=== PATIENT | female | born 2000 | race Two or more races ===

== ENCOUNTER 2025-05-19 00:01 | Inpatient (IN) ==
[2025-05-19] MEDS: ONDANSETRON INJ 2 MG/ML 2 ML VIAL ONE (00:14)
[2025-05-19] MEDS: ONDANSETRON INJ 2 MG/ML 2 ML VIAL IV STA (00:18)
[2025-05-19] MEDS: SODIUM CHLORIDE 0.9% 1,000 ML IV SCH (00:19)
[2025-05-19] MEDS: PANTOprazole 40 MG/10 ML SYR IV ONE (00:38)
[2025-05-19 00:39] LABS: Hematocrit (blood only) 42.5 % (37.0-47.0); Hemoglobin 14.1 g/dl (12.0-16.0); Immature Granulocytes # (auto) 0.05 K/uL (0.01-0.20); Immature Granulocytes % (auto) 0.4 %; Mean Corpuscular Hemoglobin 29.9 pg (25.0-34.0); Mean Corpuscular Volume 90.0 fL (80.0-100.0); Platelet Count 255 K/uL (130-400); RDW Standard Deviation 42.2 fL (36.4-46.3); Red Blood Count 4.72 M/uL (4.20-5.40); White Blood Count 12.12 K/ul (4.8-10.8)
[2025-05-19 00:47] LABS: Alanine Aminotransferase 27.0 U/L (7-52); Albumin Globulin Ratio 1.7 (0.9-2); Alkaline Phosphatase 86.0 U/L (34-104); Anion Gap 13.0 (3-11); Bilirubin,Total 0.2 mg/dl (0.2-1.0); Blood Urea Nitrogen 22.0 mg/dl (6-23); Calcium 9.4 mg/dl (8.6-10.3); Carbon Dioxide 20.0 mmol/L (21-32); Chloride 106.0 mmol/L (98-107); Creatinine Clr Calc Pharmacy 92.3 ml/min; Globulin 2.7 gm/dl (2.5-4.0); Glucose 183.0 mg/dl (70-99(Fasting)); Magnesium 2.2 mg/dl (1.7-2.4); Potassium 4.3 mmol/L (3.5-5.1); Sodium 139.0 mmol/L (136-145); Total Protein 7.3 gm/dl (6.0-8.3)
--- NOTE | 2025-05-19 00:47 | Emergency Department Note ---
Impression & Plan Intentional drug overdose, Advil overdose ED Provider Note NAME: MITALI WARNER AGE: 24 SEX: F : 2000 ARRIVES VIA: Walk-In INFORMANT: Patient, ED PROVIDER(S): Evaristo Garcia MD CHIEF COMPLAINT: Overdose, unresponsive HPI: This is a 24-year-old female presenting for overdose/unresponsiveness. Patient was reportedly brought in by fianc. They. Had an argument and the fianc left the house. He returned home and found her with [employer] bottle of Advil, 10 mg. He states entire bottle was empty. Patient had reportedly vomited multiple places across the house. She has been confused/unresponsive since he came home. He states there are no other medications in the house. Otherwise denies any alcohol or drugs in the house. ROS: See above HPI for pertinent positives & negatives. A total of 10 systems reviewed and were otherwise negative. PAST MEDICAL HISTORY: See Below PAST SURGICAL HISTORY: See Below FAMILY HISTORY: See Below SOCIAL HISTORY: See Below HOME MEDICATIONS: See Below ALLERGIES: See Below VITALS: See Below PHYSICAL EXAMINATION: General: Eyes closed, unresponsive moaning Head: Normocephalic and atraumatic Eyes: Normal inspection, extraocular muscles intact Ear, nose, throat: Normal external exam Neck: Normal range of motion Respiratory: lungs clear to auscultation bilaterally Cardiovascular: Regular rate/rhythm, no murmur GI: soft, nontender, no guarding or rebound Extremities: nontender, moves all extremities Neuro: Moves all extremities to pain, eyes closed Skin: Warm, dry, and intact MEDICAL DECISION MAKING: This is a 24-year-old female presenting for overdose/unresponsiveness. Patient reportedly had taken ibuprofen. Unclear if other drugs are on board. She withdraws to painful stimuli. Otherwise she makes moaning sounds. She is tachycardic, not hypoxic or hypotensive. No fevers. Not tachypneic. -After patient is let her rest, she does downtrend with heart rates in the 90s. Moaning ceases. - Bloodwork is reviewed showing no significant leukocytosis, anemia, electrolyte or creatinine abnormality. Negative alcohol, salicylates and Tylenol level -Patient given fluids, Zofran and Protonix -CT imaging of the head does not reveal obvious intracranial hemorrhage - Lactic acid minimally elevated at 3.6. VBG is mildly acidotic as well. - This time patient has improved vital signs but is still fairly lethargic. She maintains airway. Will admit for encephalopathy status post overdose. - Care discussed with Dr. Caicedo for admission Differential diagnosis: Alcohol intoxication, TCA overdose, sedative overdose, intracranial hemorrhage Independent History obtained from: [facility] interpreted by me: ECG: Cardiac Monitoring: An order was placed for continuous cardiac monitoring. The monitor shows a rate of 92 with sinus rhythm. Past Med/Surg History Problem List (Updated 05/19/25 @ 17:34 by Evaristo Garcia MD) Insomnia Advil overdose (Acute) Intentional drug overdose (Acute) Social History Smoking Status: Never smoker Hx Alcohol Use: No Hx Substance Use: No Preferred Language: Malay Communication Ability: Effective [employer] Required: No Beliefs That Will Affect Care: None Current Living Situation: Significant Other Feels Safe at Home: Yes Assistive Devices: None Allergies Allergies Allergy/AdvReac Type Severity Reaction Status Date / Time No Known Allergies Allergy Verified 05/19/25 02:14 Home Meds Home Medications Medication Instructions Recorded Confirmed No Known Home Medications 05/19/25 05/19/25 Results & Data (ED) Vital Signs Vital Signs - 24 hr 05/19/25 00:03 05/19/25 00:05 05/19/25 00:05 Temperature 37 C Temperature Source Rectal Pulse Rate 124 H Pulse Rate [Apical] 126 H Pulse Rate from SpO2 Sensor Pulse Rhythm [Apical] Regular Pulse Strength [Apical] Normal Respiratory Rate 12 Respiratory Effort / Characteristics Non-Labored Spontaneous Respiratory Depth Normal Respiratory Pattern Regular Blood Pressure Blood Pressure [Right Arm] 111/58 L Blood Pressure Mean Blood Pressure Mean [Right Arm] 75 Blood Pressure Position [Right Arm] Lying Pulse Oximetry 99 100 Oxygen Delivery Method Room Air Room Air Sepsis Recent Fever Within 48 Hours No Sepsis New/Unexplained Change in Mental Status N/A Sepsis Action Taken by Nursing No Action Required 05/19/25 00:15 05/19/25 00:30 05/19/25 00:50 Temperature Temperature Source Pulse Rate Pulse Rate [Apical] 100 H 126 H 96 H Pulse Rate from SpO2 Sensor Pulse Rhythm [Apical] Regular Regular Pulse Strength [Apical] Normal Normal Respiratory Rate 13 17 20 Respiratory Effort / Characteristics Grunting Grunting Respiratory Depth Normal Normal Respiratory Pattern Regular Regular Blood Pressure Blood Pressure [Right Arm] 93/75 L 95/75 L 99/56 L Blood Pressure Mean Blood Pressure Mean [Right Arm] 81 81 70 Blood Pressure Position [Right Arm] Lying Sitting Lying Pulse Oximetry 100 100 100 Oxygen Delivery Method Room Air Room Air Room Air Sepsis Recent Fever Within 48 Hours Sepsis New/Unexplained Change in Mental Status Sepsis Action Taken by Nursing 05/19/25 01:15 05/19/25 01:16 05/19/25 01:30 Temperature Temperature Source Pulse Rate Pulse Rate [Apical] 92 H Pulse Rate from SpO2 Sensor Pulse Rhythm [Apical] Regular Pulse Strength [Apical] Normal Respiratory Rate 17 Respiratory Effort / Characteristics Non-Labored Spontaneous Respiratory Depth Normal Respiratory Pattern Regular Blood Pressure 108/58 L 99/57 L Blood Pressure [Right Arm] 108/58 L Blood Pressure Mean 84 67 Blood Pressure Mean [Right Arm] 74 Blood Pressure Position [Right Arm] Sitting Pulse Oximetry 100 Oxygen Delivery Method Room Air Sepsis Recent Fever Within 48 Hours Sepsis New/Unexplained Change in Mental Status Sepsis Action Taken by Nursing 05/19/25 01:30 05/19/25 01:48 Temperature Temperature Source Pulse Rate 88 91 H Pulse Rate [Apical] Pulse Rate from SpO2 Sensor 90 92 H Pulse Rhythm [Apical] Pulse Strength [Apical] Respiratory Rate 20 20 Respiratory Effort / Characteristics Respiratory Depth Respiratory Pattern Blood Pressure Blood Pressure [Right Arm] Blood Pressure Mean Blood Pressure Mean [Right Arm] Blood Pressure Position [Right Arm] Pulse Oximetry 100 100 Oxygen Delivery Method Sepsis Recent Fever Within 48 Hours Sepsis New/Unexplained Change in Mental Status Sepsis Action Taken by Nursing Laboratory Data 05/19/25 11:07 05/19/25 11:07 Lab Results 05/19/25 05/19/25 05/19/25 Range/Units 00:07 00:12 00:34 WBC 12.12 H (4.8-10.8) K/ul RBC 4.72 (4.20-5.40) M/uL Hgb 14.1 (12.0-16.0) g/dl POC Hgb 14.3 (12.0-16.0) g/dl Hct 42.5 (37.0-47.0) % POC Hct 42 (37-47) % MCV 90.0 (80.0-100.0) fL MCH 29.9 (25.0-34.0) pg MCHC 33.2 (32.0-36.0) g/dL RDW Std Deviation 42.2 (36.4-46.3) fL RDW Coeff of Jennifer 12.9 (11.5-14.5) % Plt Count 255 (130-400) K/uL MPV 9.5 (9.4-12.4) fL Immature Gran % (Auto) 0.4 % Neut % (Auto) 72.8 % Lymph % (Auto) 19.2 % [place] % (Auto) 7.2 % Eos % (Auto) 0.2 % Baso % (Auto) 0.2 % Neut # (Auto) 8.82 H (1.40-6.50) K/uL Lymph # (Auto) 2.33 (1.20-3.40) K/uL [place] # (Auto) 0.87 H (0.11-0.59) K/uL Eos # (Auto) 0.02 (0.00-0.50) K/uL Baso # (Auto) 0.03 (0.00-0.20) K/uL Immature Gran # (Auto) 0.05 (0.01-0.20) K/uL POC pH 7.27 L (7.35-7.45) POC pCO2 46 (35-46) mmHg POC pO2 42 L (80-95) mmHg POC HCO3 21 (19-24) denise/L POC Total CO2 23 L (24-31) mmol/L POC Base Excess -6.0 (-9-1.8) denise/L POC ABG O2 Sat 71.0 L (90-95) % POC Sodium 139 (135-144) mmol/L Sodium 139 (136-145) mmol/L POC Potassium 4.1 (3.3-5.0) mmol/L Potassium 4.3 (3.5-5.1) mmol/L Chloride 106 (98-107) mmol/L Carbon Dioxide 20 L (21-32) mmol/L Anion Gap 13 H (3-11) BUN 22 (6-23) mg/dl Creatinine 0.88 (0.6-1.2) mg/dl Est Cr Clr Drug Dosing 92.3 ml/min eGFR 94.06 BUN/Creatinine Ratio 25.0 H (10-20) Glucose 183 H (70-99(Fasting)) mg/dl Estimat Average Glucose 103 mg/dl Hemoglobin A1c 5.2 (4.5-5.6) % Lactate (0.4-2.0) mmol/L Calcium 9.4 (8.6-10.3) mg/dl Magnesium 2.2 (1.7-2.4) mg/dl Total Bilirubin 0.2 (0.2-1.0) mg/dl AST 34 (13-39) U/L ALT 27 (7-52) U/L Alkaline Phosphatase 86 (34-104) U/L Total Protein 7.3 (6.0-8.3) gm/dl Albumin 4.6 (3.4-5.0) gm/dl Globulin 2.7 (2.5-4.0) gm/dl Albumin/Globulin Ratio 1.7 (0.9-2) Procalcitonin < 0.02 (0-0.5) ng/ml TSH 0.598 (0.300-4.500) uIu/ml Urine Color Yellow Urine Appearance Clear (Clear) Urine pH 6.0 (4.5-7.5) Ur Specific [place] 1.028 (1.000-1.030) Urine Protein 1+ H (Negative) Urine Glucose (UA) Negative (Negative) Urine Ketones 1+ H (Negative) Urine Blood 1+ H (Negative) Urine Nitrite Negative (Negative) Urine Bilirubin Negative (Negative) Urine Urobilinogen Negative (Negative) Ur Leukocyte Esterase Negative (Negative) Urine WBC (Auto) 0-5 (0-5) /hpf Urine RBC (Auto) 0-2 (0-2) /hpf U Hyaline Cast (Auto) 0-2 (0-2) /lpf U Epithel Cells (Auto) 0-2 (0-2) /hpf Urine Bacteria (Auto) 4+ H (None Seen) Urine Test Negative (Negative) Urine Comment Salicylates < 3.0 L (3.0-30) mg/dl Urine Opiates Screen Neg (Neg) Ur Methadone, Qual Neg (Neg) Urine Fentanyl Screen Neg (Neg) Acetaminophen < 3 L (10-30) ug/ml Urine Barbiturates Neg (Neg) Ur Phencyclidine (PCP) Neg (Neg) U Amphetamin/Meth Scrn Neg (Neg) MDMA (Ecstasy) Screen Neg (Neg) U Benzodiazepines Scrn Neg (Neg) Ur Cocaine Metabolite Neg (Neg) U Marijuana (THC) Screen Neg (Neg) Ethyl Alcohol mg/dL < 10.0 (<10.0) mg/dl 05/19/25 Range/Units 01:00 WBC (4.8-10.8) K/ul RBC (4.20-5.40) M/uL Hgb (12.0-16.0) g/dl POC Hgb (12.0-16.0) g/dl Hct (37.0-47.0) % POC Hct (37-47) % MCV (80.0-100.0) fL MCH (25.0-34.0) pg MCHC (32.0-36.0) g/dL RDW Std Deviation (36.4-46.3) fL RDW Coeff of Jennifer (11.5-14.5) % Plt Count (130-400) K/uL MPV (9.4-12.4) fL Immature Gran % (Auto) % Neut % (Auto) % Lymph % (Auto) % [place] % (Auto) % Eos % (Auto) % Baso % (Auto) % Neut # (Auto) (1.40-6.50) K/uL Lymph # (Auto) (1.20-3.40) K/uL [place] # (Auto) (0.11-0.59) K/uL Eos # (Auto) (0.00-0.50) K/uL Baso # (Auto) (0.00-0.20) K/uL Immature Gran # (Auto) (0.01-0.20) K/uL POC pH (7.35-7.45) POC pCO2 (35-46) mmHg POC pO2 (80-95) mmHg POC HCO3 (19-24) denise/L POC Total CO2 (24-31) mmol/L POC Base Excess (-9-1.8) denise/L POC ABG O2 Sat (90-95) % POC Sodium (135-144) mmol/L Sodium (136-145) mmol/L POC Potassium (3.3-5.0) mmol/L Potassium (3.5-5.1) mmol/L Chloride (98-107) mmol/L Carbon Dioxide (21-32) mmol/L Anion Gap (3-11) BUN (6-23) mg/dl Creatinine (0.6-1.2) mg/dl Est Cr Clr Drug Dosing ml/min eGFR BUN/Creatinine Ratio (10-20) Glucose (70-99(Fasting)) mg/dl Estimat Average Glucose mg/dl Hemoglobin A1c (4.5-5.6) % Lactate 3.6 H* (0.4-2.0) mmol/L Calcium (8.6-10.3) mg/dl Magnesium (1.7-2.4) mg/dl Total Bilirubin (0.2-1.0) mg/dl AST (13-39) U/L ALT (7-52) U/L Alkaline Phosphatase (34-104) U/L Total Protein (6.0-8.3) gm/dl Albumin (3.4-5.0) gm/dl Globulin (2.5-4.0) gm/dl Albumin/Globulin Ratio (0.9-2) Procalcitonin (0-0.5) ng/ml TSH (0.300-4.500) uIu/ml Urine Color Urine Appearance (Clear) Urine pH (4.5-7.5) Ur Specific [place] (1.000-1.030) Urine Protein (Negative) Urine Glucose (UA) (Negative) Urine Ketones (Negative) Urine Blood (Negative) Urine Nitrite (Negative) Urine Bilirubin (Negative) Urine Urobilinogen (Negative) Ur Leukocyte Esterase (Negative) Urine WBC (Auto) (0-5) /hpf Urine RBC (Auto) (0-2) /hpf U Hyaline Cast (Auto) (0-2) /lpf U Epithel Cells (Auto) (0-2) /hpf Urine Bacteria (Auto) (None Seen) Urine Test (Negative) Urine Comment Salicylates (3.0-30) mg/dl Urine Opiates Screen (Neg) Ur Methadone, Qual (Neg) Urine Fentanyl Screen (Neg) Acetaminophen (10-30) ug/ml Urine Barbiturates (Neg) Ur Phencyclidine (PCP) (Neg) U Amphetamin/Meth Scrn (Neg) MDMA (Ecstasy) Screen (Neg) U Benzodiazepines Scrn (Neg) Ur Cocaine Metabolite (Neg) U Marijuana (THC) Screen (Neg) Ethyl Alcohol mg/dL (<10.0) mg/dl Administered Medications Promethazine HCl (Phenergan) 6.25 mg in 50.25 mls @ 201 mls/hr IV Q6H PRN PRN Reason: Nausea And Vomiting Stop: 06/18/25 01:56 Last Infusion: 05/19/25 05:18 Dose: Infused Documented By: Admin: 05/19/25 04:54 Dose: 201 mls/hr Documented By: EZRA Discontinued Medications Sodium Chloride (Nss) 1,000 mls @ 999 mls/hr IV .Q1H1M SHANELLE Stop: 05/19/25 01:15 Last Infusion: 05/19/25 01:23 Dose: Infused Documented By: Admin: 05/19/25 00:19 Dose: 999 mls/hr Documented By: EZRA Pantoprazole Sodium (Protonix) 40 mg in 10 mls @ 5 mls/min IV NOW ONE Stop: 05/19/25 00:23 Last Admin: 05/19/25 00:38 Dose: 5 mls/min Documented By: EZRA Lactated Ringer's (Lr) 1,000 mls @ 500 mls/hr IV .Q2H STA Stop: 05/19/25 04:08 Last Infusion: 05/19/25 05:19 Dose: Infused Documented By: Admin: 05/19/25 02:13 Dose: 500 mls/hr Documented By: DANIELLE Lactated Ringer's (Lr) 1,000 mls @ 200 mls/hr IV .Q5H ONE Stop: 05/19/25 09:14 Last Infusion: 05/19/25 10:25 Dose: Infused Documented By: Admin: 05/19/25 04:48 Dose: 200 mls/hr Documented By: EZRA Lactated Ringer's (Lr) 1,000 mls @ 200 mls/hr IV .Q5H ONE Stop: 05/19/25 14:59 Last Infusion: 05/19/25 15:44 Dose: Infused Documented By: Admin: 05/19/25 10:25 Dose: 200 mls/hr Documented By: SHERRY Miscellaneous Information (Patient's Allergy Info Needs Entered) 1 each N/A ONE STA Stop: 05/19/25 02:11 Last Admin: 05/19/25 02:18 Dose: Not Given Documented By: DANIELLE Ondansetron HCl (Ondansetron Inj 2 Mg/Ml 2 Ml Vial) Confirm Administered Dose 4 mg .ROUTE .STK-MED ONE Stop: 05/19/25 00:11 Last Admin: 05/19/25 00:14 Dose: 4 mg Documented By: EZRA Ondansetron HCl (Ondansetron Inj 2 Mg/Ml 2 Ml Vial) 4 mg IV NOW STA Stop: 05/19/25 00:14 Last Admin: 05/19/25 00:18 Dose: Not Given Documented By: EZRA Discharge Plan Visit Data Chief Complaint: Overdose (Intentional) Stated Complaint: OD ON ADVIL 6PM ED Provider: Evaristo Garcia Discharge Problem: Intentional drug overdose, Advil overdose Patient Disposition: Home - Self-Care Condition: Fair Discharge Instructions Interventions: ED Discharge Assessment Last Done: 05/19/25 16:10
[2025-05-19 01:00] LABS: Appearance Urine Clear (Clear); Bacteria Urine Automated 4+ (None Seen); Cast Urine Automated 0-2 /lpf (0-2); Epithelial Cell Urine Auto 0-2 /hpf (0-2); Glucose Urine UA Negative (Negative); RBC Urine Automated 0-2 /hpf (0-2); WBC Urine Automated 0-5 /hpf (0-5)
[2025-05-19 01:04] LABS: iSTAT Art Bld Gas Base Excess -6.0 meg/L (-9-1.8)
[2025-05-19 01:08] LABS: Acetaminophen < 3 ug/ml (10-30); Salicylate < 3.0 mg/dl (3.0-30)
[2025-05-19 01:44] LABS: Amphetamines+Metham, Urine Neg (Neg); MDMA (Ecstacy), Urine Neg (Neg); Marijuana, Urine Neg (Neg)
[2025-05-19] MEDS: LACTATED RINGER'S 1,000 ML IV STA (02:13)
[2025-05-19 02:30] LABS: Thyroid Stimulating Hormone 0.598 uIu/ml (0.300-4.500)
[2025-05-19] MEDS ORDERED: ACETAMINOPHEN 325 MG TAB PO PRN ×2 (02:30→04:17)
--- NOTE | 2025-05-19 02:31 | History & Physical Report ---
Date of Service May 19, 2025 Assessment & Plan (1) Intentional drug overdose: Plan: Assessment and plan below following discussion of case with ED provider and reviewing patient history/pertinent normal/abnormal diagnostic test results. Encephalopathy secondary to intentional drug overdose (NSAID for now) Metabolic acidosis corrected above Hypotension secondary to hypovolemia Mood disorder not on maintenance medications Hyperglycemia rule out DM Admit to med/tele Monitor lactic response to IVF Recheck VBG Follow toxicology commendations Psych consult re: suicidality Suicide precautions Check hemoglobin A1c DVT prophylaxis. SCDs given potential bleeding from NSAID overdose Full code Patient fianc requesting updates from providers. Mr. Mahdi Clifford, contact #[phone]. Text document was generated using 2,10E+07 voice recognition software. It may contain grammatical or spelling errors. Kindly contact undersigned for clarification of any documentation item in question. History of Present Illness Chief Complaint: Unresponsiveness Primary Care Provider: NO PCP History obtained from patient's family and records. Unable to obtain history from patient secondary to obtunded state. Medical history significant for mood disorder. Patient had an argument with partner last night. She threatened to end her life. Patient found to to be unresponsive by partner upon return home. Empty bottle of Advil on patient's side. History of suicidal attempts in the past as per partner. Patient brought to ER for evaluation. Lowest SBP of 80s documented at the ER. Patient unable to respond to questions regarding chest pain, SOB, abdominal pain. Medical History as above Surgical History : Back surgery, cosmetic jaw surgery Family History : Depression Personal/Social history : Non-smoker, no EtOH intake, [employer] employee (cosmetics department) Allergies Allergy/AdvReac Type Severity Reaction Status Date / Time No Known Allergies Allergy Verified 05/19/25 02:14 Home Medications Medication Instructions Recorded Confirmed Type No Known Home Medications 05/19/25 05/19/25 History Past Med/Surg History Problem List (Updated 05/19/25 @ 04:13 by Bautista Rubin MD) Intentional drug overdose Social History Preferred Language: Salvadorean Feels Safe at Home: Yes Review of Systems Review of Systems: Could not be reliably obtained secondary to obtunded state Physical Exam Physical Exam: GENERAL: Obtunded, no respiratory distress, lying on the right lateral decubitus position, SKIN: Normal color, warm HEENT: [place] palpebral conjunctivae, no ptosis, dry buccal mucosa NECK : Supple, no tenderness CHEST : CTA, no tenderness HEART : RRR, no obvious murmurs ABDOMEN: Some distention, nontender EXTREMITIES : No LE swelling/tenderness, palpable pulses, no other conspicuous deformities noted NEUROLOGIC : Obtunded, no facial asymmetry, gait and stance not assessed Results & Data Results & Data Vital Signs (Past 12 Hours) Vital Signs Temp Pulse Pulse Resp BP BP Pulse Ox 05/19/25 02:16 92 H 18 88/54 L 100 05/19/25 01:15 92 H 17 108/58 L 100 05/19/25 00:50 96 H 20 99/56 L 100 05/19/25 00:30 126 H 17 95/75 L 100 05/19/25 00:15 100 H 13 93/75 L 100 05/19/25 00:05 37 C 100 05/19/25 00:05 124 H 05/19/25 00:03 126 H 12 111/58 L 99 O2 Del Method 05/19/25 02:16 Room Air 05/19/25 01:15 Room Air 05/19/25 00:50 Room Air 05/19/25 00:30 Room Air 05/19/25 00:15 Room Air 05/19/25 00:05 Room Air 05/19/25 00:05 05/19/25 00:03 Room Air Laboratory Results Laboratory Results WBC 12.12 K/ul (4.8-10.8) H 05/19/25 00:07 RBC 4.72 M/uL (4.20-5.40) 05/19/25 00:07 Hgb 14.1 g/dl (12.0-16.0) 05/19/25 00:07 POC Hgb 14.3 g/dl (12.0-16.0) 05/19/25 00:12 Hct 42.5 % (37.0-47.0) 05/19/25 00:07 POC Hct 42 % (37-47) 05/19/25 00:12 MCV 90.0 fL (80.0-100.0) 05/19/25 00:07 MCH 29.9 pg (25.0-34.0) 05/19/25 00:07 MCHC 33.2 g/dL (32.0-36.0) 05/19/25 00:07 RDW Std Deviation 42.2 fL (36.4-46.3) 05/19/25 00:07 RDW Coeff of Jennifer 12.9 % (11.5-14.5) 05/19/25 00:07 Plt Count 255 K/uL (130-400) 05/19/25 00:07 MPV 9.5 fL (9.4-12.4) 05/19/25 00:07 Immature Gran % (Auto) 0.4 % 05/19/25 00:07 Neut % (Auto) 72.8 % 05/19/25 00:07 Lymph % (Auto) 19.2 % 05/19/25 00:07 [place] % (Auto) 7.2 % 05/19/25 00:07 Eos % (Auto) 0.2 % 05/19/25 00:07 Baso % (Auto) 0.2 % 05/19/25 00:07 Neut # (Auto) 8.82 K/uL (1.40-6.50) H 05/19/25 00:07 Lymph # (Auto) 2.33 K/uL (1.20-3.40) 05/19/25 00:07 [place] # (Auto) 0.87 K/uL (0.11-0.59) H 05/19/25 00:07 Eos # (Auto) 0.02 K/uL (0.00-0.50) 05/19/25 00:07 Baso # (Auto) 0.03 K/uL (0.00-0.20) 05/19/25 00:07 Immature Gran # (Auto) 0.05 K/uL (0.01-0.20) 05/19/25 00:07 POC pH 7.27 (7.35-7.45) L 05/19/25 00:12 POC pCO2 46 mmHg (35-46) 05/19/25 00:12 POC pO2 42 mmHg (80-95) L 05/19/25 00:12 POC HCO3 21 denise/L (19-24) 05/19/25 00:12 POC Total CO2 23 mmol/L (24-31) L 05/19/25 00:12 POC Base Excess -6.0 denise/L (-9-1.8) 05/19/25 00:12 POC ABG O2 Sat 71.0 % (90-95) L 05/19/25 00:12 Carboxyhemoglobin 0.9 % THgb 05/19/25 01:56 POC Sodium 139 mmol/L (135-144) 05/19/25 00:12 Sodium 139 mmol/L (136-145) 05/19/25 00:07 POC Potassium 4.1 mmol/L (3.3-5.0) 05/19/25 00:12 Potassium 4.3 mmol/L (3.5-5.1) 05/19/25 00:07 Chloride 106 mmol/L (98-107) 05/19/25 00:07 Carbon Dioxide 20 mmol/L (21-32) L 05/19/25 00:07 Anion Gap 13 (3-11) H 05/19/25 00:07 BUN 22 mg/dl (6-23) 05/19/25 00:07 Creatinine 0.88 mg/dl (0.6-1.2) 05/19/25 00:07 Est Cr Clr Drug Dosing 92.3 ml/min 05/19/25 00:07 eGFR 94.06 05/19/25 00:07 BUN/Creatinine Ratio 25.0 (10-20) H 05/19/25 00:07 Glucose 183 mg/dl (70-99(Fasting)) H 05/19/25 00:07 Lactate 3.6 mmol/L (0.4-2.0) H* 05/19/25 01:00 Calcium 9.4 mg/dl (8.6-10.3) 05/19/25 00:07 Magnesium 2.2 mg/dl (1.7-2.4) 05/19/25 00:07 Total Bilirubin 0.2 mg/dl (0.2-1.0) 05/19/25 00:07 AST 34 U/L (13-39) 05/19/25 00:07 ALT 27 U/L (7-52) 05/19/25 00:07 Alkaline Phosphatase 86 U/L (34-104) 05/19/25 00:07 Total Protein 7.3 gm/dl (6.0-8.3) 05/19/25 00:07 Albumin 4.6 gm/dl (3.4-5.0) 05/19/25 00:07 Globulin 2.7 gm/dl (2.5-4.0) 05/19/25 00:07 Albumin/Globulin Ratio 1.7 (0.9-2) 05/19/25 00:07 Procalcitonin < 0.02 ng/ml (0-0.5) 05/19/25 00:07 TSH 0.598 uIu/ml (0.300-4.500) 05/19/25 00:07 Urine Color Yellow 05/19/25:34 Urine Appearance Clear (Clear) 05/19/25 00:34 Urine pH 6.0 (4.5-7.5) 05/19/25 00:34 Ur Specific [place] 1.028 (1.000-1.030) 05/19/25 00:34 Urine Protein 1+ (Negative) H 05/19/25 00:34 Urine Glucose (UA) Negative (Negative) 05/19/25 00:34 Urine Ketones 1+ (Negative) H 05/19/25 00:34 Urine Blood 1+ (Negative) H 05/19/25 00:34 Urine Nitrite Negative (Negative) 05/19/25 00:34 Urine Bilirubin Negative (Negative) 05/19/25 00:34 Urine Urobilinogen Negative (Negative) 05/19/25 00:34 Ur Leukocyte Esterase Negative (Negative) 05/19/25 00:34 Urine WBC (Auto) 0-5 /hpf (0-5) 05/19/25 00:34 Urine RBC (Auto) 0-2 /hpf (0-2) 05/19/25 00:34 U Hyaline Cast (Auto) 0-2 /lpf (0-2) 05/19/25 00:34 U Epithel Cells (Auto) 0-2 /hpf (0-2) 05/19/25 00:34 Urine Bacteria (Auto) 4+ (None Seen) H 05/19/25 00:34 Urine Test Negative (Negative) 05/19/25 00: Urine Comment 05/19/25 00:34 Salicylates < 3.0 mg/dl (3.0-30) L 05/19/25 00:07 Urine Opiates Screen Neg (Neg) 05/19/25 00:34 Ur Methadone, Qual Neg (Neg) 05/19/25 00:34 Urine Fentanyl Screen Neg (Neg) 05/19/25 00:34 Acetaminophen < 3 ug/ml (10-30) L 05/19/25 00:07 Urine Barbiturates Neg (Neg) 05/19/25 00:34 Ur Phencyclidine (PCP) Neg (Neg) 05/19/25 00:34 U Amphetamin/Meth Scrn Neg (Neg) 05/19/25 00:34 MDMA (Ecstasy) Screen Neg (Neg) 05/19/25 00:34 U Benzodiazepines Scrn Neg (Neg) 05/19/25 00:34 Ur Cocaine Metabolite Neg (Neg) 05/19/25 00:34 U Marijuana (THC) Screen Neg (Neg) 05/19/25 00:34 Ethyl Alcohol mg/dL < 10.0 mg/dl (<10.0) 05/19/25 00:07 CT head: No acute findings in the head/brain. Diagnostic Findings EKG as per my interpretation : Code Status & VTE Plan VTE Prophylaxis Plan VTE Prophylaxis will be ordered: Yes
--- NOTE | 2025-05-19 03:10 | CT Scan Report ---
Exam(s): CT HEAD Without Contrast EXAM: CT Head Without Intravenous Contrast CLINICAL HISTORY: Reason for exam: overdose, confusion. TECHNIQUE: Axial computed tomography images of the head/brain without intravenous contrast. CTDI is 37.95 mGy and DLP is 624.41 mGy-cm. Automated exposure control was utilized for the study. A dose lowering technique was utilized adhering to the principles of ALARA. COMPARISON: No relevant prior studies available. FINDINGS: Brain: Unremarkable. No hemorrhage. No significant white matter disease. No edema. Ventricles: Unremarkable. No ventriculomegaly. Bones/joints: Unremarkable. No acute fracture. Soft tissues: Unremarkable. Sinuses: Unremarkable as visualized. No acute sinusitis. Mastoid air cells: Unremarkable as visualized. No mastoid effusion. Other findings: The head is tilted with respect of the CT gantry. IMPRESSION: No acute findings in the head/brain. Electronically signed by: Jaspreet Roach MD 05/19/25 03:08 AM
[2025-05-19] MEDS: LACTATED RINGER'S 1,000 ML IV ONE ×2 (04:48→10:25)
[2025-05-19] MEDS: PROMETHAZINE 6.25 MG/50.25 ML BAG IV PRN (04:54)
[2025-05-19 04:58] LABS: Base Excess VBG -6.0 mEq/L; HCO3 VBG 20 mmol/L; Oxygen Saturation VBG 87.7 %; PCO2 VBG 38 mmHg (38-50); PO2 VBG 52 mmHg; pH VBG 7.32 (7.36-7.41)
[2025-05-19 05:16] VITALS: TEMP 98.1; O2SAT 100
[2025-05-19 10:15] LABS: Hemoglobin A1C 5.2 % (4.5-5.6)
--- NOTE | 2025-05-19 11:22 | Psychiatric Consultation ---
Date of Consultation May 19, 2025 Impression / Recommendations Impression Diagnostically possible she took Advil as a suicidal gesture or act of self-harm in context of argument but seems more likely this was an adjustment reaction and overuse of Advil without intent for harm. Doreen and her fiance independently deny any statements of suicide prior to overdose, following overdose nor any history of suicide attempts. And both report lack of knowledge that excess Advil could cause any type of harm. Rather it seems that Doreen often uses Advil for pain symptoms and can struggle with sleep and seems to have thought that Advil might have a similar effect to melatonin if she took extra doses. She presents without any signs of major depressive episode nor angela nor psychosis, denies SI and is future-oriented with stated reasons for living and activities/work she enjoys and good relationships/support network. She has an outpatient therapist and declines any further resources. Seems her overdose may have been due to misunderstanding of potential effects and safety profile of Advil as an over the counter medication. She doesn't meet 302 criteria. Acute risk of self-harm is low given denial of SI, positive mood, future- oriented, reasons for living and few non-modifiable risk factors. Chronic risk is moderate given history of self-harm and impulsivity. Discussed most significant modifiable risk factor of ongoing therapy and safety planning and crisis resources. Safety planning completed and her fiance agrees to secure any over the counter medications at home including Advil. No access to guns confirmed. Overall, I spent a total of 80 minutes with this case including review of chart records, review of labwork, direct evaluation of the patient at bedside, counseling the patient, discussion of the patient with the hospitalist provider, discussion with the psychiatric liason during clinical rounds, review of collateral historian information from the family and documentation in the electronic health record. (1) Advil overdose: (2) Insomnia: Plan -Doesn't require 1-on-1 nor suicide precautions -Safe for discharge from psychiatric standpoint -Safety planning completed with Doreen and with her fiance -She has outpatient therapy -Reviewed crisis resources including [id number] and [id number] -She declines voluntary inpatient psychiatric hospitalization and additional outpatient resources citing she feels well supported with current resources and ayanna agrees with this -Encourage use of melatonin 3mg or 5mg HS prn for insomnia which she has used in the past with good benefit -Educated on risks of additional Advil and acetaminophen use even though these are over the counter medications Psych History Identifying Data Doreen is a 24 yo woman with no significant psychiatric history admitted medically following overdose of Advil. Psychiatry consulted for risk assessment Chief Complaint "I had a lot of stomach pain and took the Advil for that and so I could sleep". History of Present Illness Doreen was brought to the hospital by her fiance for overdose of Advil. ED notes state concern that this was a suicide attempt as she took the Advil following an argument with her fiance and when he arrived home there was vomit in the house and she was unresponsive. On arrival to the hospital she showed responses to painful stimuli per ED documentation and was lethargic but maintained her airway. This morning she is alert and oriented and able to converse easily. She was agreeable to having her fiance leave the room so we could meet. She denies any current SI nor that she ever experienced this. Rather states she took the Advil after having stomach pain and wanting to get some sleep. She recalls taking ~10 Advil and believed this dose would not cause any harm and would help her fall asleep for the night. She reports some recent stress from her parents divorce but also discusses positive things including her job which she really likes. Sometimes she struggles with sleep, denies any other depressive symptoms including no appetite changes, no issues with concentration, denies any hopelessness nor anhedonia. She feels she and her fiance have a good relationship and she signed an MERI for us to speak with him. She denies any prior suicide attempts. No prior psychiatric hospitalizations. Denies any family history of by suicide. No access to guns. No history of psychiatric diagnoses or medication trials. She sees a therapist virtually once a month from [facility] (where she previously lived). Then met with her fiance separately, , who reports no safety concerns. He doesn't view her behaviors of taking the Advil as a suicide attempt stating "she knows Advil won't do anything" to her. He confirms ED details that he and Doreen were having an argument about "something small, I don't even remember what it wa s" and she said "I can't stand this" but he never heard her make any statements of SI or intent for self-harm. He then left the home to get some space and they were texting to update her when he'd return home. When he got home she was not responding and appeared sick. he notes she often takes Advil around her menses for cramps and he worried she took too many. He reports she has a history of self-harm via hitting her head but has never attempted suicide or done anything like this. 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 He confirms her parents divorce is difficult especially because she cannot easily return home to visit her mother in [place]. He notes her parents, especially her mom, is a huge support for her and that "she'd never harm herself because of her parents, she loves her mom". He confirms no access to guns. Confirms she attends therapy sessions and can contact therapist if needed for additional sessions. Neither Doreen nor her fiance feel that inpatient psychiatric treatment would be helpful nor do either feel it's necessary. Neither feels any additional resources like a local therapist or telephonic nurse case manager would be beneficial. Did review with both local crisis information and psychiatric resources if needed in the future. Allergies Allergy/AdvReac Type Severity Reaction Status Date / Time No Known Allergies Allergy Verified 05/19/25 02:14 Home Medications Medication Instructions Recorded Confirmed Type No Known Home Medications 05/19/25 05/19/25 History Patient History Social History Smoking Status: Never smoker Hx Alcohol Use: No Hx Substance Use: No Preferred Language: Czech Communication Ability: Effective Cafeteria Operator Required: No Beliefs That Will Affect Care: None Current Living Situation: Significant Other Other Information That Helps Us Care for You: No Feels Safe at Home: Yes Safety Concerns: Feels Safe At This Time Assistive Devices: None Physical Exam Psychiatric: Orientation: alert and oriented x 3 Apperance: appropriately dressed and appropriately groomed Eye Contact: good eye contact Motor Behavior: no abnormal motor movements Speech: normal rate/rhythm/volume of speech Affect: euthymic affect (smiles appropriately) Mood: no depressed mood and no anxious mood Thought Process: linear/logical thought process Thought Content: reality based without delusions Suicidal Thoughts: denies suicidal thoughts, denies suicidal plan and denies suicidal intent Homicidal Thoughts: denies homicidal thoughts Hallucinations: no auditory hallucinations and no visual hallucinations Cognition: recent memory grossly intact, remote memory grossly intact, attention grossly intact and language grossly intact Estimated Intelligence: consistent with education level Insight: + fair insight Judgment: + limited judgement Vital Signs (Past 24 Hours): Last Vital Signs Temp 36.7 C 05/19/25 05:06 Pulse 80 05/19/25 10:00 Resp 16 05/19/25 10:00 BP 90/75 L 05/19/25 10:00 Pulse Ox 100 05/19/25 10:00 O2 Del Method Room Air 05/19/25 05:06 Results & Data (PSY) Medications Administered Promethazine HCl (Phenergan) 6.25 mg in 50.25 mls @ 201 mls/hr IV Q6H PRN PRN Reason: Nausea And Vomiting Stop: 06/18/25 01:56 Last Infusion: 05/19/25 05:18 Dose: Infused Documented By: Admin: 05/19/25 04:54 Dose: 201 mls/hr Documented By: EZRA Lactated Ringer's (Lr) 1,000 mls @ 200 mls/hr IV .Q5H ONE Stop: 05/19/25 14:59 Last Admin: 05/19/25 10:25 Dose: 200 mls/hr Documented By: SHERRY Coding Level of Care Code 33756 IN/OBS CONSULT LVL 5,80M Diagnoses Advil overdose T39.311A Insomnia G47.00
[2025-05-19 11:27] LABS: Base Excess VBG -1.6 mEq/L; HCO3 VBG 24 mmol/L; Oxygen Saturation VBG < 60.0 %; PCO2 VBG 41 mmHg (38-50); PO2 VBG 24 mmHg; pH VBG 7.37 (7.36-7.41)
[2025-05-19 11:32] LABS: Hematocrit (blood only) 40.5 % (37.0-47.0); Hemoglobin 13.5 g/dl (12.0-16.0); Mean Corpuscular Hemoglobin 30.0 pg (25.0-34.0); Mean Corpuscular Volume 90.0 fL (80.0-100.0); Platelet Count 231 K/uL (130-400); RDW Standard Deviation 43.4 fL (36.4-46.3); Red Blood Count 4.50 M/uL (4.20-5.40); White Blood Count 9.81 K/ul (4.8-10.8)
[2025-05-19 11:52] LABS: Alanine Aminotransferase 34.0 U/L (7-52); Albumin Globulin Ratio 1.5 (0.9-2); Alkaline Phosphatase 77.0 U/L (34-104); Anion Gap 9.0 (3-11); Bilirubin,Total 0.3 mg/dl (0.2-1.0); Blood Urea Nitrogen 16.0 mg/dl (6-23); Calcium 9.3 mg/dl (8.6-10.3); Carbon Dioxide 22.0 mmol/L (21-32); Chloride 111.0 mmol/L (98-107); Creatinine Clr Calc Pharmacy 89.2 ml/min; Globulin 2.7 gm/dl (2.5-4.0); Glucose 94.0 mg/dl (70-99(Fasting)); Magnesium 1.9 mg/dl (1.7-2.4); Potassium 4.5 mmol/L (3.5-5.1); Sodium 142.0 mmol/L (136-145); Total Protein 6.7 gm/dl (6.0-8.3)
--- NOTE | 2025-05-19 13:04 | Discharge Summary ---
Date of Service May 19, 2025 Admission HPI Per Admitting Provider History obtained from patient's family and records. Unable to obtain history from patient secondary to obtunded state. Medical history significant for mood disorder. Patient had an argument with partner last night. She threatened to end her life. Patient found to to be unresponsive by partner upon return home. Empty bottle of Advil on patient's side. History of suicidal attempts in the past as per partner. Patient brought to ER for evaluation. Lowest SBP of 80s documented at the ER. Patient unable to respond to questions regarding chest pain, SOB, abdominal pain. Medical History as above Surgical History : Back surgery, cosmetic jaw surgery Family History : Depression Personal/Social history : Non-smoker, no EtOH intake, [employer] employee (cosmetics department) Admission Exam Per Admitting Provider GENERAL: Obtunded, no respiratory distress, lying on the right lateral decubitus position, SKIN: Normal color, warm HEENT: [place] palpebral conjunctivae, no ptosis, dry buccal mucosa NECK : Supple, no tenderness CHEST : CTA, no tenderness HEART : RRR, no obvious murmurs ABDOMEN: Some distention, nontender EXTREMITIES : No LE swelling/tenderness, palpable pulses, no other conspicuous deformities noted NEUROLOGIC : Obtunded, no facial asymmetry, gait and stance not assessed Principal Diagnosis drug overdose, ?? intentional Discharge Exam GENERAL: AOx3, no respiratory distress, RA, NAD SKIN: Normal color, warm HEENT: [place] palpebral conjunctivae, no ptosis, moist buccal mucosa NECK : Supple, no tenderness CHEST : CTA, no tenderness HEART : RRR, no obvious murmurs ABDOMEN: Some distention, nontender EXTREMITIES : No LE swelling/tenderness, palpable pulses, no other conspicuous deformities noted NEUROLOGIC : no SI/HI, no facial asymmetry, gait and stance not assessed Discharge Data Allergies Allergy/AdvReac Type Severity Reaction Status Date / Time No Known Allergies Allergy Verified 05/19/25 02:14 Consultations 05/19/25 01:36 ED Decision to Admit Stat 05/19/25 04:17 Consult Psychiatry Routine Ordered Studies 05/19/25 00:13 CT head/brain wo con Stat Hospital Course (1) Intentional drug overdose: Per admitting provider w/ addendum: Assessment and plan below following discussion of case with ED provider and reviewing patient history/pertinent normal/abnormal diagnostic test results. Encephalopathy secondary to intentional drug overdose (NSAID for now) Metabolic acidosis corrected above Hypotension secondary to hypovolemia Mood disorder not on maintenance medications Hyperglycemia rule out DM Admit to med/tele Monitor lactic response to IVF Recheck VBG Follow toxicology commendations Psych consult re: suicidality Suicide precautions Check hemoglobin A1c DVT prophylaxis. SCDs given potential bleeding from NSAID overdose Full code Patient fianc requesting updates from providers. Mr. Mahdi Clifford, contact #[phone]. Addendum 05/19/2025: At bedside exam, patient is now alert and awake. Patient's fianc at bedside. It appears that patient took 10 tablets of Advil 200 mg, she denies suicidal ideation, denies any homicidal ideation. She reports she occasionally takes multiple tablets about 6-8 but has not taken as high as 10 tablets in the past. She states that she is taking it to help with sleep. Patient counseled and advised to take melatonin per diamond grader's instruction instead of Advil to help with sleep. Discussed with psychiatry, patient is cleared for discharge from psychiatric standpoint. Discussed with poison control, since the labs including metabolic acidosis and pH has improved and patient's mentation has improved back to normal, they are okay with patient being discharged. QTc WNL. Toxicology screen is normal. Will continue and finish with current IV fluid and discharge the patient today. Patient is being discharged with following instructions at the point of discharge: Follow-up with your primary care physician within a week time and likely you will need labs CBC/CMP/magnesium/phosphorus. As discussed at the bedside, do not utilize ibuprofen at such a high quantity on a regular basis. Instead use melatonin to help you with sleep and can consider using Tylenol per diamond grader's recommendations for pain management. If you have to use ibuprofen, I recommend that you use it with food and strictly as per diamond grader's recommendation and if you are using regularly for more than 2 to 3 days, consult with your primary care physician. Take your medications as prescribed. Please make sure that you are able to get your medications today by calling your pharmacy before you leave the hospital so that your treatment continuity is not broken. Text document was generated using [employer] voice recognition software. It may contain grammatical or spelling errors. Kindly contact undersigned for clarification of any documentation item in question. Home Health Attestation I certify that this patient is under my care and that I, or a physicians financial assistant working with me, had a face to-face encounter that meets the home health [id number] encounter requirements with this patient. The encounter with the patient was in whole, or in part, for the following medical condition, which is the primary reason for home health care (list medica l condition): I certify that, based on my findings, the following services are medically necessary home health services: My clinical findings support the need for the above services because: Further, I certify that my clinical findings support that this patient is homebound (i.e. absences from home require considerable and taxing effort and are for medical reasons or sikhism services or infrequently or of short duration when for other reasons) because: Certification for Home Health Services: Based on the above findings, I certify that this patient is confined to the home and needs intermittent penitentiary care, physical therapy and/or speech therapy or continues to need occupational therapy. The patient is under my care, and I have initiated the establishment of the plan of care. This patient will be followed by a physician who will periodically review the plan of care. Total Time Total Time Spent Total Time Spent (In Minutes): 35 Discharge Plan Discharge Items Patient Disposition: Home - Self-Care Reason For Visit: MET ACIDOSIS, ENCEPHALOPATHY Discharge Diagnosis: drug overdose, ?? intentional Activity: Resume your previous activity Non-emergency contact: Primary Care Provider Call non-emergency contact if: you have any medication questions Follow-up/Referrals: PCP,NO [Primary Care Provider] - Diet: Regular Addtl Attending Provider Instructions: Follow-up with your primary care physician within a week time and likely you will need labs CBC/CMP/magnesium/phosphorus. As discussed at the bedside, do not utilize ibuprofen at such a high quantity on a regular basis. Instead use melatonin to help you with sleep and can consider using Tylenol per diamond grader's recommendations for pain management. If you have to use ibuprofen, I recommend that you use it with food and strictly as per diamond grader's recommendation and if you are using regularly for more than 2 to 3 days, consult with your primary care physician. Take your medications as prescribed. Please make sure that you are able to get your medications today by calling your pharmacy before you leave the hospital so that your treatment continuity is not broken. Pending Studies at Discharge: No Stand-Alone Forms: My [employer], Smoking Cessation Medications and DC Order Prescriptions: No Action No Known Home Medications Discharge Orders: Discharge Order (Routine); Ordered 05/19/25 Ordered By: Van Reynoso Admission Data Admit Date/Time: 05/19/25 01:54 Attending Provider: Van Reynoso Admit Provider: Bautista Rubin Primary Care Provider: PCP,NO Other Providers: Bautista Rubin; Sugey Miramontes; Maulik Mercado; Susanne Wang; Ileana Wade; Bret Reyes; Nicolás Batista; Arnol Loya
[2025-05-19 16:39] VITALS: BP 99/65; PULSE 87; RESP 19
--- NOTE | 2025-05-20 14:23 | Electrocardiogram Report ---
Test Reason : Blood Pressure : */* mmHG Vent. Rate : 67 BPM Atrial Rate : 67 BPM P-R Int : 164 ms QRS Dur : 76 ms QT Int : 404 ms P-R-T Axes : 48 72 60 degrees QTcB Int : 426 ms Sinus rhythm with marked sinus arrhythmia Otherwise normal ECG No previous ECGs available Confirmed by Jarrod Castillo ([id number]) on 05/20/2025 2:23:19 PM Referred By: REFERRED SELF Confirmed By: Jarrod Castillo
== END 2025-05-19 16:00 | disposition home or self-care (01) | DRG 917 ==
LOC: ED 00:01 → EDINP 01:54